=== PATIENT | female | born 1935 | race Caucasian/White ===

== ENCOUNTER 2022-03-25 09:08 | Emergency (ER) | payer MEDICARE, SELFPAY ==
[2022-03-25 09:20] VITALS: BP 135/54; PULSE 67; RESP 16; TEMP 37.2; O2SAT 97
--- NOTE | 2022-03-25 09:20 | ED.UPPEXIN ---
HPI - Extremity Injury (Upper) General Chief Complaint: Extremity Injury, Upper Stated Complaint: R SHOULDER PAIN Time Seen by Provider: 03/25/22 09:22 Source: patient and RN notes reviewed Mode of arrival: ambulatory Limitations: no limitations History of Present Illness HPI narrative: 86-year-old female presents concern for right shoulder pain. Reports 3-1/2 weeks ago she swung her golf club and felt a sudden pain in her right shoulder with a popping sound. she reports since then she has had continuing pain that has slightly increased. She reports pain with certain range of motion's. She denies weakness, decreased function or range of motion. She denies intervention. She denies bruises, swelling, redness, rash MD complaint: injury to: right and shoulder Related Data Home Medications Medication Instructions Recorded Confirmed No Home Medications 03/25/22 03/25/22 Allergies Allergy/AdvReac Type Severity Reaction Status Date / Time ciprofloxacin Allergy Unknown Verified 10/06/15 09:48 Sulfa (Sulfonamide Allergy Unknown Verified 10/06/15 09:48 Antibiotics) Review of Systems Review of Systems: CONSTITUTIONAL: Denies malaise, chills, sweats, or fever. SKIN: Denies rash or itching, open skin, laceration, abrasion, redness, warmth, swelling. MUSCULOSKELETAL: Reports right shoulder pain NEUROLOGIC: Denies numbness, weakness All systems reviewed & are unremarkable except as noted in HPI and below PMFSH Social History Social History Smoking status: Never smoker Alcohol intake: never Comments At time of signature, agree with nursing past medical, surgical, social and family history. There is no relevant family history pertinent to the presenting complaint Exam Narrative: GENERAL: Well-appearing, well-nourished, and in no acute distress. HEAD: Normocephalic, atraumatic. EYES: PERRLA, conjunctivae clear NECK: Supple. CHEST: Speaks in full sentences. No respiratory distress. HEART: Regular rate and rhythm. Normal and equal peripheral pulses. EXTREMITIES: Right shoulder arm, hand have normal strength and sensation, normal range of motion. No edema or ecchymosis. 5/5 strength with shoulder abduction and abduction. Normal sensation with sensitivity to light touch and pain. No point tenderness. No open wounds, no skin tenting, no devitalized tissue or atrophy, no trophic changes, no obvious deformity, alignment normal, nearby joints and structures intact. Distal pulses palpable and equal bilaterally, skin warm, dry, pink. Capillary refill less than 3 seconds. SKIN: Warm, dry, no rash. NEURO: Alert and oriented x3. PSYCH: Normal mood and affect Course Course Emergency Course: Patient is aware of diagnosis, understands and agrees to treatment plan. Anticipatory guidance given. Patient agrees to follow-up as directed and is aware of reasons to seek care at the emergency department. Portions of this record may have been created with voice recognition software Level of Care: Express Care Visit Vital Signs Vital signs: Reviewed. MDM - Extremity Injury (Upper) MDM Narrative Medical decision making narrative: Patients injury and pain is consistent with musculoskeletal etiology. No signs of neurological or vascular compromise on exam. Compartments and tissues are soft without signs of compartment syndrome. Pain is felt appropriate for further evaluation on an outpatient basis. Critical Care Time Critical Care Time Critical Care Time: No Discharge Plan Discharge Clinical Impression: Injury of shoulder, right Patient Disposition: Home, Self-Care Condition: Stable Instructions: Rotator Cuff Injury Exercises (DC) Additional Instructions: Avoid activities that cause pain until the pain subsides. Ice to the area 20-30 minutes 4-6 times a day Wear sling as needed for comfort Tylenol for pain Ibuprofen regularly for the next 2-3 days for the inflammation Follow up with your primary care pro
== END 2022-03-25 09:39 | disposition home or self-care (01) ==
PROVIDERS: Emergency Provider Nurse Practitioner
DX: S49.91XA Unspecified injury of right shoulder and upper arm, initial encounter (principal); X50.9XXA Other and unspecified overexertion or strenuous movements or postures, initial encounter
CPT/HCPCS: 99213; A4565; G0463

== ENCOUNTER → 2022-09-06 15:33 | Outpatient (CLI) | payer MEDICARE, SELFPAY ==
--- NOTE | ~2022-09-06 | XR_ITS ---
EXAM: XR shoulder RT min 2V DATE: 09/06/2022 15:56 HISTORY: FALL 2-3 WEEKS AGO PAIN LIMITED ROM . COMPARISON: None available. FINDINGS: Normal mineralization. No fracture or dislocation. No lytic or blastic lesion. Distal acro mial osteophytosis versus postsurgical change. Moderate degenerative change at the glenohumeral joint . Degenerative subcortical cysts in the humeral head. No erosion or periosteal change. Soft tissues w ithin normal limits. IMPRESSION: No acute osseous finding in the right shoulder. Reviewed, dictated and finalized at location K. ET ROLLER ENGINEER
== END ==
PROVIDERS: PCP Family Medicine; Visit Provider Family Medicine
DX: M25.511 Pain in right shoulder (principal)
CPT/HCPCS: 73030

== ENCOUNTER 2023-04-25 08:09 | Outpatient (CLI) | payer MEDICARE, SELFPAY ==
[2023-04-25 14:23] LABS: Basophils Percent Auto 0.7 % (0.2-1.2); Eosinophils Absolute Auto 0.2 K/mm3 (0-0.3); Eosinophils Percent Auto 2.9 % (0-4.4); Hematocrit 40.7 % (37.0-47.0); Hemoglobin 13.7 g/dL (12.0-15.0); Immature Granulocyte Absolute 0.01 K/mm3 (0.00-0.031); Immature Granulocyte Percent A 0.2 % (0-0.5); Lymphocytes Absolute Auto 2.13 K/mm3 (0.9-3.2); Lymphocytes Percent Auto 36.2 % (18.3-44.2); Mean Corpuscular HGB Conc 33.7 g/dl (32-36); Mean Corpuscular Hemoglobin 32.5 pg (26-34); Mean Corpuscular Volume 96.7 fl (80-100); Mean Platelet Volume 9.3 fl (7.4-10.4); Monocytes Absolute Auto 0.5 K/mm3 (0.1-0.6); Monocytes Percent Auto 9.2 % (2.6-8.5); Neutrophils Percent Auto 50.8 % (45.5-73.1); Platelet Count Result 223 k/mm3 (150-375); Red Blood Count 4.21 M/mm3 (4.2-5.4); Red Cell Distribution Width 12.1 % (11.5-14.5); White Blood Count 5.9 K/mm3 (4.5-10.0)
[2023-04-25 14:35] LABS: Alanine Aminotransferase 18 U/L (6-35); Albumin Level 4.2 g/dL (3.5-5.1); Alkaline Phosphatase 71 U/L (38-126); Anion Gap 12 mmol/L (8-16); Aspartate Amino Transferase 50 U/L (14-36); Bilirubin,Total 1.4 mg/dL (0.2-1.3); Blood Urea Nitrogen 18 mg/dL (7-17); Calcium 9.2 mg/dL (8.4-10.2); Carbon Dioxide 30 mmol/L (22-30); Chloride 97 mmol/L (98-107); Cholesterol 215 mg/dL (0-200); Estimated Glomerular Filt Rate > 60; Glucose 86 mg/dL (65-110); HDL Direct 54 mg/dL; Potassium 4.2 mmol/L (3.4-5.0); Sodium 139 mmol/L (137-145); Triglycerides 162 mg/dL (<150)
[2023-04-25 14:47] LABS: LDL Cholesterol Direct 117 mg/dL
[2023-04-25 15:49] LABS: Vitamin D 25 Hydroxy 49.6 ng/mL
== END 2023-04-25 08:10 | disposition home or self-care (01) ==
LOC: ANHGOSHLAB 08:11
PROVIDERS: PCP Family Medicine; Visit Provider Family Medicine
DX: Z00.00 Encounter for general adult medical examination without abnormal findings (principal); E78.5 Hyperlipidemia, unspecified; E55.9 Vitamin D deficiency, unspecified; Z79.899 Other long term (current) drug therapy; R23.2 Flushing; R43.0 Anosmia; E53.8 Deficiency of other specified B group vitamins
CPT/HCPCS: 36415; 80053; 80061; 82306; 82607; 84443; 85025

== ENCOUNTER 2023-09-05 15:22 | Outpatient (CLI) | payer MEDICARE, OTHER, SELFPAY ==
--- NOTE | ~2023-09-05 | MM_ITS ---
EXAMINATION: MM screening garrick BI w jaime HISTORY: Screening mammogram TECHNIQUE: Craniocaudal and mediolateral oblique 3-D tomosynthesis images were obtained and synthetic 2-D images were generated. CAD analysis was submitted and interpreted. COMPARISON: No prior mammogram is available for comparison at this institution. BREAST PARENCHYMAL COMPOSITION: There are scattered areas of fibroglandular density. FINDINGS: RIGHT BREAST: There is a low-density mass in the anterior/middle third of the lower-outer breast 4 cm from the nipple. LEFT BREAST: No suspicious mass, calcification, or architectural distortion are identified to suggest malignancy. IMPRESSION: 1. Right breast mass. 2. Additional mammographic views and possible breast ultrasound are recommended. BI-RADS Category 0: Incomplete: Needs additional imaging evaluation. Reviewed, dictated and finalized at location A. EM TRAINER IMPRESSION: 1. Right breast mass. 2. Additional mammographic views and possible breast ultrasound are recommended . BI-RADS Category 0: Incomplete: Needs additional imaging evaluation.
--- NOTE | ~2023-09-05 | DEXA_ITS ---
Bone Density Report Name: MORRIS PELAYO Age: 88 Sex: Female Ethnicity: White Date of : 1935 Indication: postmenopausal; screening for osteoporosis; height loss; Referring Provider: ROXANA STEINBERG Study: Bone densitometry was performed. Exam Date: September 05, 2023 Accession number: [id number] Bone Density: Region BMD T-score Z-score Classification AP Spine(L1-L4) 0.979 -0.6 2.3 Normal Femoral Neck (Left) 0.620 -2.1 0.5 Osteopenia Total Hip (Left) 0.719 -1.8 0.5 Osteopenia Femoral Neck (Right) 0.590 -2.3 0.2 Osteopenia Total Hip (Right) 0.685 -2.1 0.2 Osteopenia Total Hip Mean 0.702 -2.0 0.4 Osteopenia World Health Organization criteria for BMD impression classify patients as: Normal (T-score at or above -1.0), Osteopenia (T-score between -1.0 and -2.5), or Osteoporosis (T-score at or below -2.5). 10-year Fracture Risk(1): Major Osteoporotic Fracture 17% Hip Fracture 5.7% Reported Risk Factors: [place] (), Neck BMD=0.590, BMI=25.4 (1) FRAX(R) Version 3.08. Fracture probability calculated for an untreated patient. Fracture probability may be lower if the patient has received treatment. Clinical Information Provided by Patient: Has used the following medications: Calcium Patient maximum height was 62 Menopause Age: 52 No regular weight bearing exercise Drinks caffeinated beverages Onset of menses at age 14 Number of children 3 Impression: The patient has low bone mass, based on the Right Femoral Neck T-score. The patient has an estimated ten-year risk of hip fracture of 5.7% and an estimated ten-year risk of major fracture of 17%, based on the WHO FRAX algorithm. Discussion: BONE DENSITY IS LOW AT ONE OR MORE SKELETAL SITES. THE PATIENT'S BMD AND CLINICAL RISK FACTORS CONTRIBUTE TO THIS PATIENT'S INCREASED RISK OF FRACTURE. This patient's lowest T-score is low at one or more skeletal sites. It meets the World Health Organization's (WHO) criteria for ?low bone mass? (T-score between -1.0 and -2.5). The patient's 10-year risk of hip fracture as calculated by FRAX exceeds the threshold where pharmacological therapy is recommended by the National Osteoporosis Foundation (NOF). However, all treatment decisions require clinical judgment and consideration of individual patient factors, including patient preferences, comorbidities, previous drug use, risk factors not captured in the FRAX model (e.g., frailty, falls, vitamin D deficiency, increased bone turnover, interval significant decline in bone density) and possible under or overestimation of fracture risk by FRAX. The patient should follow a healthful lifestyle (good nutrition with adequate calcium and vitamin D, and appropriate weight-bearing exercise). Follow-Up: Consider a repeat BMD and Vertebral Frac
== END 2023-09-05 15:23 | disposition home or self-care (01) ==
PROVIDERS: PCP Family Medicine; Visit Provider Family Medicine
DX: Z12.31 Encounter for screening mammogram for malignant neoplasm of breast (principal); Z78.0 Asymptomatic menopausal state; R92.8 Other abnormal and inconclusive findings on diagnostic imaging of breast; M85.852 Other specified disorders of bone density and structure, left thigh; M85.851 Other specified disorders of bone density and structure, right thigh
CPT/HCPCS: 77063; 77067; 77080

== ENCOUNTER 2023-10-02 09:31 | Outpatient (CLI) | payer MEDICARE, OTHER, SELFPAY ==
--- NOTE | ~2023-10-02 | MMUS_ITS ---
EXAMINATION: MM diagnostic garrick RT w jaime, US breast RT limited HISTORY: Follow-up right breast asymmetry TECHNIQUE: Additional 3-D tomosynthesis images of the right breast were performed and synthetic 2-D i mages were generated. CAD analysis was submitted and interpreted. High resolution Limited right breas t ultrasound was performed. COMPARISON: 09/05/2023 BREAST PARENCHYMAL COMPOSITION: Breast composed of scattered areas of fibroglandular density FINDINGS: MAMMOGRAPHIC FINDINGS: There is a persistent mass in the lower outer quadrant of the right breast anteriorly. There are no s uspicious calcifications or architectural distortion. ULTRASOUND: Limited left breast ultrasound: At 8:00, 2 cm from the nipple, there is a complicated cyst measuring 6 mm, corresponding to the area of mammographic concern. No suspicious masses to suggest malignancy. IMPRESSION: 1. No evidence for malignancy in the right breast. Benign finding. 2. Routine yearly screening mammogram and regular clinical breast examination are recommended. BI-RADS Category 2: Benign finding(s). Reviewed, dictated and finalized at location A. NER BARREL AND RECEIVER IMPRESSION: 1. No evidence for malignancy in the right breast. Benign finding. 2. Routine yearly screening mammogram and regular clinical breast examination a re recommended. BI-RADS Category 2: Benign finding(s).
== END 2023-10-02 09:32 | disposition home or self-care (01) ==
LOC: ANHIMG 09:34
PROVIDERS: PCP Family Medicine; Visit Provider Family Medicine
DX: N63.10 Unspecified lump in the right breast, unspecified quadrant (principal); R92.8 Other abnormal and inconclusive findings on diagnostic imaging of breast
CPT/HCPCS: 76642; 77061; 77065; G0279

== ENCOUNTER 2024-04-29 09:37 | Outpatient (CLI) | payer MEDICARE, OTHER, SELFPAY ==
[2024-04-29 14:07] LABS: Basophils Absolute Auto 0.1 K/mm3 (0.0-0.1); Eosinophils Absolute Auto 0.2 K/mm3 (0-0.3); Eosinophils Percent Auto 2.2 % (0-4.4); Hematocrit 41.3 % (37.0-47.0); Hemoglobin 13.6 g/dL (12.0-15.0); Immature Granulocyte Absolute 0.01 K/mm3 (0.00-0.031); Immature Granulocyte Percent A 0.1 % (0-0.5); Lymphocytes Absolute Auto 2.15 K/mm3 (0.9-3.2); Lymphocytes Percent Auto 31.5 % (18.3-44.2); Mean Corpuscular HGB Conc 32.9 g/dl (32-36); Mean Corpuscular Hemoglobin 32.5 pg (26-34); Mean Corpuscular Volume 98.8 fl (80-100); Mean Platelet Volume 9.1 fl (7.4-10.4); Monocytes Absolute Auto 0.7 K/mm3 (0.1-0.6); Monocytes Percent Auto 9.7 % (2.6-8.5); Neutrophils Absolute Auto 3.8 K/mm3 (1.3-6.7); Neutrophils Percent Auto 55.5 % (45.5-73.1); Platelet Count Result 228 k/mm3 (150-375); Red Blood Count 4.18 M/mm3 (4.2-5.4); Red Cell Distribution Width 12.2 % (11.5-14.5); White Blood Count 6.8 K/mm3 (4.5-10.0)
[2024-04-29 14:45] LABS: Alanine Aminotransferase 17 U/L (6-35); Albumin Level 4.2 g/dL (3.5-5.1); Alkaline Phosphatase 72 U/L (38-126); Anion Gap 10 mmol/L (4-12); Aspartate Amino Transferase 59 U/L (14-36); Bilirubin,Total 1.5 mg/dL (0.2-1.3); Blood Urea Nitrogen 15 mg/dL (7-17); Calcium 9.5 mg/dL (8.4-10.2); Carbon Dioxide 28 mmol/L (22-30); Chloride 101 mmol/L (98-107); Cholesterol 219 mg/dL (0-200); Estimated Glomerular Filt Rate > 60; Glucose 86 mg/dL (65-110); HDL Direct 61 mg/dL; Potassium 4.6 mmol/L (3.4-5.0); Sodium 139 mmol/L (137-145); Triglycerides 131 mg/dL (<150)
[2024-04-29 14:56] LABS: LDL Cholesterol Direct 113 mg/dL
== END 2024-04-29 09:38 | disposition home or self-care (01) ==
PROVIDERS: PCP Family Medicine; Visit Provider Nurse Practitioner Family
DX: R20.0 Anesthesia of skin (principal); Z13.220 Encounter for screening for lipoid disorders; E78.5 Hyperlipidemia, unspecified
CPT/HCPCS: 36415; 80053; 80061; 84443; 85025

== ENCOUNTER 2024-10-03 10:03 | Outpatient (CLI) | payer MEDICARE, OTHER, SELFPAY ==
--- NOTE | ~2024-10-03 | MM_ITS ---
EXAMINATION: MM screening garrick BI w jaime HISTORY: Screening TECHNIQUE: Craniocaudal and mediolateral oblique 3-D tomosynthesis images were obtained and synthetic 2-D images were generated. CAD analysis was submitted and interpreted. COMPARISON: 09/05/2023 BREAST PARENCHYMAL COMPOSITION: Not dense: There are scattered areas of fibroglandular density. FINDINGS: There is no evidence of suspicious mass, calcification, or architectural distortion to sugg est malignancy in either breast. There has been no suspicious interval change. IMPRESSION: 1. No mammographic evidence of malignancy. 2. Recommend routine screening mammography in one year. BI-RADS Category 1: Negative Reviewed, dictated and finalized at location A. ERCIAL DIRECTOR
--- OUTSIDE RECORDS SUMMARY | 2024-10-03 10:48 | XMS_ITS | Referral Summary ---
Author Organization [facility] Address [address] [place] [address] Care Team Providers Care Silica Mixer Operator Name Role Phone Unavailable Primary Care Provider Unavailabl e Source Comments [facility],non-owned Affiliates and Associated Physician Practices is amultiple site organization consisting of ambulatory clinics and hospital sitesin [place], [place], [place] and [place]. This disclosure is being madepursuant to the Care Everywhere program and may not contain all information available regarding this patient. Last updated 18.[facility] [employer] Social History Tobacco Use Types Packs/Day Years Used Date Smoking Tobacco: Never Assessed Sex and Gender Information Value Date Recorded Sex Assigned at Not on file Gender Identity Not on file Sexual Orientation Not on file Plan of Treatment Not on file
--- OUTSIDE RECORDS SUMMARY | 2024-10-03 10:48 | XMS_ITS | Clinical Summary ---
Author Organization [facility] [address] Address [address] [place] [id number] Care Team Providers Care Curtains And Draperies Salesperson Name Role Phone Alcides Ovalles MD Primary Care Provider [phone] Allergies Active Allergy Reactions Criticality Noted Date Comments Ciprofloxacin Stomach upset,Vision changes Medium 08/13/2019 Sulfa (Sulfonamide Antibiotics) Other (See comments) Low 08/13/2019 Bladder infection Medications nitrofurantoin monohydrate (MACROBID) 100 mg capsule TAKE 1 CAPSULE BY MOUTH TWICE A DAY FOR 7 DAYS 0 07/08/2019 Active aspirin 81 mg enteric coated tablet Take 81 mg by mouth daily Active Active Problems No known active problems Surgical History Surgery Date Site/Laterality Comments TOTAL ABDOMINAL HYSTERECTOMY W/ BILATERAL SALPINGOOPHORECTOMY 09/04/1987 - 09/03/1988 INGUINAL HERNIA REPAIR Right BREAST BIOPSY Left CATARACT EXTRACTION Medical History Medical History Date Comments Glaucoma TIA (transient ischemic attack) Inguinal hernia Kidney stone Basal cell carcinoma Migraine Family History Medical History Relation Name Comments Hypertension Mother Skin cancer Sister Relation Name Status Comments Mother Sister Social History Tobacco Use Types Packs/Day Years Used Date Smoking Tobacco: Former Cigarettes Q uit: 1985 Smokeless Tobacco: Never Alcohol Use Standard Drinks/Week Comments Yes 0 (1 standard drink = 0.6 oz pur e alcohol) Personal Safety Answer Date Recorded Getting School Help Needed Not on file 11/17 Comments No Sex and Gender Information Value Date Recorded Sex Assigned at Not on file Legal Sex Female 8:54 PM METAL CONTROL COORDINATOR Gender Identity Not on file Sexual Orientation Not on file Obstetrics History Last Filed Vital Signs Vital Sign Reading Time Taken Comments Blood Pressure 120/78 08/13/2019 10:43 AM METAL CONTROL COORDINATOR Pulse - - Temperature - - Respiratory Rate - - Oxygen Saturation - - Inhaled Oxygen Concentration - - Weight 63.5 kg (140 lb) 08/13/2019 10:43 AM METAL CONTROL COORDINATOR Height 154.9 cm (5' 1 ) 08/13/2019 10:43 AM METAL CONTROL COORDINATOR Body Mass Index 26.45 08/13/2019 10:43 AM METAL CONTROL COORDINATOR Plan of Treatment Not on file Insurance MEDICARE [employer] GENERIC MEDICARE COMMERCIAL GENERIC Care Teams Curtains And Draperies Salesperson Relationship Specialty Start Date End Date Alcides Ovalles MD [address] [facility] [address] [place] [address] PCP - General 07/04/18
--- OUTSIDE RECORDS SUMMARY | 2024-10-03 10:48 | XMS_ITS | Patient Health Summary ---
Author Organization [facility] Address [address] [facility] [address] [place] [address] Care Team Providers Care Flush Tester Name Role Phone Unavailable Primary Care Provider Unavailabl e Note from [facility],non-owned Affiliates and Associated Physician Practices is amultiple site organization consisting of ambulatory clinics and hospital sitesin [place], [place], [place] and [place]. This disclosure is being madepursuant to the Care Everywhere program and may not contain all information available regarding this patient. Last updated 18.[facility] [employer] Social History Tobacco Use Types Packs/Day Years Used Date Smoking Tobacco: Never Assessed Sex and Gender Information Value Date Recorded Sex Assigned at Not on file Gender Identity Not on file Sexual Orientation Not on file Procedures * CYTOLOGY SMEAR PAP(Performed 10/07/1997) Results * CYTOLOGY SMEAR PAP (10/07/1997 12:26 PM SUPERVISOR CAR INSTALLATIONS) Result CASE NUMBER [id number] Comment: ORDERING PHYSICIAN ??MORENO EAGLE SPECIMEN TYPE ?PAP Smear Date ? 10/07/1997 Procedure ?Vaginal, 1 smear received Specimen Adequacy ?Satisfactory for Evaluation Categorization ? Within Normal Limits Snomed. ?10/09/1997 0944 <1> Grounds And Nursery Specialist ? Zack Nolasco(ASCP) PAP Footnote ? The PAP smear is only a screening procedure to aid in the detection of cervical cancer and its precursors. ??It is not a diagnostic procedure and should not be used as the sole means to detect cervical cancer. ??Both false negative and false positive results have been experienced. MISCELLANEOUS SAMPLES / Unknown 10/07/1997 12:26 PM SUPERVISOR CAR INSTALLATIONS 10/08/1997 12:26 PM SUPERVISOR CAR INSTALLATIONS Historical Provider LAB - PATHOLOGY/C YTOLOGY ORDERABLES
--- OUTSIDE RECORDS SUMMARY | 2024-10-03 10:48 | XMS_ITS | Clinical Summary ---
Author Organization [facility] Address [address] [place] [address]. [place], [place] [address] [place] [id number] Care Team Providers Care Pulp Drier Firer Name Role Phone Unavailable Primary Care Provider Unavailabl e Social History Tobacco Use Types Packs/Day Years Used Date Smoking Tobacco: Never Assessed Comments Unknown Sex and Gender Information Value Date Recorded Sex Assigned at Not on file Legal Sex Female 8:23 PM CDT Gender Identity Not on file Sexual Orientation Not on file Plan of Treatment Health Maintenance Due Date Last Done Comments DTaP, Tdap and Td Vaccines ( 1 - Tdap) 1956 Zoster Vaccines (1 of 2) 1987 Pneumococcal Vaccine: 65+ Ye ars (1 of 1 - PCV) 2002 RSV Immunization or 60+ Years (1 - 1-dose 75+ series) 2012 COVID-19 Vaccine (2023-2 5 season) 2024 Influenza Adult (#1) 2024 Meningococcal B Vaccine Aged Out No l onger eligible based on patient's age to complete this topic Meningococcal Vaccine Aged Out No monse favian eligible based on patient's age to complete this topic RSV Immunizations Under 20 Months Aged Out No longer eligible based on patient's age to complete this topic
--- OUTSIDE RECORDS SUMMARY | 2024-10-03 10:48 | XMS_ITS | Referral Summary ---
Author Organization [facility] [id number] [place] Address [address] [place] [id number] Care Team Providers Care Cooperative Education Director Name Role Phone Alcides Ovalles MD Primary Care Provider Allergies Active Allergy Reactions Criticality Noted Date [...] Active Active Problems No known active problems Social History Tobacco Use Types Packs/Day Years Used Date Smoking Tobacco: Former Cigarettes Q uit: 1986 Smokeless Tobacco: Never Alcohol Use Standard Drinks/Week Comments Yes 0 (1 standard drink = 0.6 oz pur e alcohol) Personal Safety Answer Date Recorded Getting School Help Needed Not on file 11/17 Comments No Sex and Gender Information Value Date Recorded Sex Assigned at Not on file Legal Sex Female 8:54 PM SOFTWARE ENGINEER DEVELOPER Gender Identity Not on file Sexual Orientation Not on file Last Filed Vital Signs Vital Sign Reading Time Taken Comments Blood Pressure 120/78 08/13/2019 10:43 AM SOFTWARE ENGINEER DEVELOPER Pulse - - Temperature - - Respiratory Rate - - Oxygen Saturation - - Inhaled Oxygen Concentration - - Weight 63.5 kg (140 lb) 08/13/2019 10:43 AM SOFTWARE ENGINEER DEVELOPER Height 154.9 cm (5' 1 ) 08/13/2019 10:43 AM SOFTWARE ENGINEER DEVELOPER Body Mass Index 26.45 08/13/2019 10:43 AM SOFTWARE ENGINEER DEVELOPER Plan of Treatment Not on file Insurance MEDICARE COMMERCIAL GENERIC MEDICARE COMMERCIAL GENERIC Care Teams Cooperative Education Director Relationship Specialty Start Date End Date Alcides Ovalles MD [address] [facility] [address] [place] [address] PCP - General 07/04/18
--- OUTSIDE RECORDS SUMMARY | 2024-10-03 10:48 | XMS_ITS | Clinical Summary ---
Author Organization [facility] Address [address] [place] [address] Care Team Providers Care Sales Support Engineer Name Role Phone Unavailable Primary Care Provider Unavailabl e Source Comments [facility],non-owned Affiliates and Associated Physician Practices is amultiple site organization consisting of ambulatory clinics and hospital sitesin [place], [place], [place] and [place]. This disclosure is being madepursuant to the Care Everywhere program and may not contain all information available regarding this patient. Last updated 18.[facility] Social History Tobacco Use Types Packs/Day Years Used Date Smoking Tobacco: Never Assessed Sex and Gender Information Value Date Recorded Sex Assigned at Not on file Gender Identity Not on file Sexual Orientation Not on file Plan of Treatment Health Maintenance Due Date Last Done Comments BONE DENSITY TESTING 1935 DTAP/TDAP/TD VACCINES (1 - Tdap) 1956 PNEUMOCOCCAL VACCINE 50+ (1 of 1 - PCV) 1987 ZOSTER VACCINE (1 of 2) 1987 Respiratory Syncytial Virus (RSV) Vaccine Pt: or over 60 yrs (1 - 1-dose 75+ series) 2012 COVID-19 VACCINE (2023-2 5 season) 2024 INFLUENZA VACCINE (#1) 2024 DEPRESSION SCREENING 09/04/2024 HEPATITIS B VACCINE Aged Out No longe r eligible based on patient's age to complete this topic HIB VACCINE Aged Out No longer eligi ble based on patient's age to complete this topic HPV VACCINE Aged Out No longer eligi ble based on patient's age to complete this topic MENINGOCOCCAL (Group B) VACCINE Aged Out No longer eligible based on patient's age to complete this topic MENINGOCOCCAL VACCINE Aged Out No monse favian eligible based on patient's age to complete this topic
== END 2024-10-03 10:04 | disposition home or self-care (01) ==
PROVIDERS: PCP Family Medicine; Visit Provider Family Medicine
DX: Z12.31 Encounter for screening mammogram for malignant neoplasm of breast (principal)
CPT/HCPCS: 77063; 77067

== ENCOUNTER 2024-10-17 12:39 | Outpatient (CLI) | payer MEDICARE, SELFPAY ==
--- OUTSIDE RECORDS SUMMARY | 2024-10-17 12:43 | XMS_ITS | Clinical Summary ---
Author Organization [facility] Robert Applebaum MD Address [address] [place] [address] Care Team Providers Care Dry Box Operator Name Role Phone Unavailable Primary Care Provider Unavailabl e Source Comments [facility] Robert Applebaum MD,non-owned Affiliates and Associated Physician Practices is amultiple site organization consisting of ambulatory clinics and hospital sitesin [place], [place], [place] and [place]. This disclosure is being madepursuant to the Care Everywhere program and may not contain all information available regarding this patient. Last updated 18.[facility] Robert Applebaum MD Social History Tobacco Use Types Packs/Day Years [...]
--- OUTSIDE RECORDS SUMMARY | 2024-10-17 12:43 | XMS_ITS | Patient Health Summary ---
Author Organization [facility] Address [address] [place] [address] Care Team Providers Care Marine Operations Coordinator Name Role Phone Unavailable Primary Care Provider Unavailabl e Note from [facility],non-owned Affiliates and Associated Physician Practices is amultiple site organization consisting of ambulatory clinics and hospital sitesin [place], [place], [place] and [place]. This disclosure is being madepursuant to the Care Everywhere program and may not contain all information available regarding this patient. Last updated 18.[facility] Social History Tobacco Use Types Packs/Day Years Used Date Smoking Tobacco: Never Assessed Sex and Gender Information Value Date Recorded Sex Assigned at Not on file Gender Identity Not on file Sexual Orientation Not on file Procedures * CYTOLOGY SMEAR PAP(Performed 10/07/1997) Results * CYTOLOGY SMEAR PAP (10/07/1997 12:26 PM FORENSIC CHEMIST) Result CASE NUMBER [id number] Comment: ORDERING PHYSICIAN MORENO EAGLE SPECIMEN TYPE PAP Smear Date 10/07/1997 Procedure Vaginal, 1 smear received Specimen Adequacy Satisfactory for Evaluation Categorization Within Normal Limits Snomed. 10/09/1997 0944 <1> Pharmacy Resource Tech Zack Nolasco(ASCP) PAP Footnote The PAP smear is only a screening procedure to aid in the detection of cervical cancer and its precursors. It is not a diagnostic procedure and should not be used as the sole means to detect cervical cancer. Both false negative and false positive results have been experienced. MISCELLANEOUS SAMPLES / Unknown 10/07/1997 12:26 PM FORENSIC CHEMIST 10/08/1997 12:26 PM FORENSIC CHEMIST Historical Provider LAB - PATHOLOGY/C YTOLOGY ORDERABLES
--- OUTSIDE RECORDS SUMMARY | 2024-10-17 12:43 | XMS_ITS | Referral Summary ---
Author Organization [facility] Address [address] [facility] [place] [address] Care Team Providers Care Fish Hatchery Man Name Role Phone Unavailable Primary Care Provider Unavailabl e Source Comments [facility],non-owned Affiliates and Associated Physician Practices is amultiple site organization consisting of ambulatory clinics and hospital sitesin [place]. This disclosure is being madepursuant to the Care Everywhere program and may not contain all information available regarding this patient. Last updated 18.[facility] [employer] Social History Tobacco Use Types Packs/Day Years Used Date Smoking Tobacco: Never Assessed Sex and Gender Information Value Date Recorded Sex Assigned at Not on file Gender Identity Not on file Sexual Orientation Not on file Plan of Treatment Not on file
--- OUTSIDE RECORDS SUMMARY | 2024-10-17 12:43 | XMS_ITS | Clinical Summary ---
Author Organization [facility] Address [facility] [place] [address] Care Team Providers Care Viner Operator Name Role Phone Unavailable Primary Care [...]
--- OUTSIDE RECORDS SUMMARY | 2024-10-17 12:43 | XMS_ITS | Continuity of Care Document ---
Author Organization [facility] Address [address] [facility] [address] [place] [address] Phone Care Team Providers Care Pediatric Np Name Role Phone Micky Mai Unavailable Unavailable Procedures Procedure Date Office/outpatient Visit, Est Optic Nerve Head Eval IOP Red Less Than 15% W Plan Of Care Apr IOP Red Less That 15% W Plan Of Care Apr Eye Exam Established Pt Optic Nerve Head Eval IOP Red Less Than 15% W Plan Of Care Nov IOP Red Less That 15% W Plan Of Care Nov Optic Nerve Topography-Professional Optic Nerve Topography-Professional Optic Nerve Topography Optic Nerve Topography Eye Exam Established Pt Oct- Optic Nerve Head Eval Oct- Corneal Pachymetry Jun- Fundus Photography W/ Report Jun- No Script Visual Field Examination-Professional Oc Visual Field Examination-Technical Sep-2 Eye Exam & Treatment Optic Nerve Head Eval No Script Advance Directives Directive Yes / No Effective Date File Name No Information Encounters Encounter Description Practice Location Reason(s) For Visit Diagnoses Date Provider Providers Copied on Encounter Office/outpat ient Visit, Est [facility], [address], [place], [place], [id number], [place] tel:[phone] [facility] No Information 201 0 Sergei Weeks. [address] , [address], [place], [address], [place]. tel:[phone] [facility] Eye [facility], [address], [place], [place], [id number], [place] tel:[phone] [facility] No Information Nov-0 1-201 0 Sergei Weeks. [facility] , [address], [place], [place], [facility], [place]. tel:[phone] [facility] Eye [facility], [address], [place], [place], [id number], [place] tel:[phone] [facility] No Information 2 3[address] Sergei Weeks. [address] [place], [place] [address] , [address], [place], [place], [facility], [place]. tel:[phone] Referring Provider: Micky Chowdary, [facility] hospital[facility] [address], [place], [place], [facility]. tel:[phone] [facility] Eye [facility], [address], [place], [place], [id number], [place] tel:[phone] [facility] No Information 1 -201 0 Sergei Weeks. [address] [place], [place] [address], [address], [place], [place], [facility], [place]. tel:[phone] Referring Provider: Micky Chowdary, [facility] [address], [place], [facility]. tel:[phone] [facility] Eye [facility], [address], [place], [place], [id number], [place] tel:[phone] [facility] No Information 2 1-200 9 Sergei Weeks. [facility] , [address], [place], [facility], [place]. tel:[phone] Referring Provider: Micky Chowdary, Y[address], [place], [facility]. tel:[phone] [facility] Eye [facility], [address], [place], [place], [id number], tel:[phone] [facility] No Information [address] Sergei Weeks. [facility] [address], [address], [place], [place], [facility], . tel:[phone] Referring Provider: Micky Chowdary, Y[facility]rose [facility] [address], [place], [facility]. tel:[phone] [facility] Eye [facility], [address], [place], [place], [id number], tel:[phone] [facility] No Information [address] Sergei Weeks. [facility] [address], [address], [place], [facility], . tel:[phone] Referring Provider: Yvrose Yarbrough [facility] [address], [place], [facility]. tel:[phone] [facility], [address] [place], [place] [address], [place], [place], [id number], tel:[phone] [facility] No Information [address] 9 Sergei Weeks. [address] [place], [place] [address]ate [address], [address], [place], [facility], . tel:[phone] Family History Family Member Type Diagnosis Age At Onset No Information Payers Payer name Insurance type Covered democrat ID Authoriza tion(s) [place] [id number] Social History Type Description Quantity Date Captured Comments Sex Female Smoking Status No Information Chief Complaint And Reason For Visit No Information Reason For Referral Reason For Referral No Information History Of Present Illness Encounter Date Complaint History Of Prese nt Illness No Information Functional Status Date Functional Assessmen t No Information Instructions Date Instruction Additional Infor mation No Information Assessments Type Assessment Date No Information Patient Care Teams Name Effective Dates (start - stop) Status Members No Information
--- OUTSIDE RECORDS SUMMARY | 2024-10-17 12:43 | XMS_ITS | Clinical Summary ---
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 Gender Identity Not on file Sexual Orientation Not on file Obstetrics History Last Filed Vital Signs Vital Sign Reading Time Taken Comments Blood Pressure 120/78 08/13/2019 10:43 AM HOSPITAL TRAY SERVICE WORKER Pulse - - Temperature - - Respiratory Rate - - Oxygen Saturation - - Inhaled Oxygen Concentration - - Weight 63.5 kg (140 lb) 08/13/2019 10:43 AM HOSPITAL TRAY SERVICE WORKER Height 154.9 cm (5' 1 ) 08/13/2019 10:43 AM HOSPITAL TRAY SERVICE WORKER Body Mass Index 26.45 08/13/2019 10:43 AM HOSPITAL TRAY SERVICE WORKER Plan of Treatment Not on file Insurance MEDICARE [employer] GENERIC MEDICARE COMMERCIAL GENERIC Care Teams Candy Cutter Machine Relationship Specialty Start Date End Date Alcides Ovalles MD [address] [facility] [address] [place] [address] PCP - General 07/04/18
--- OUTSIDE RECORDS SUMMARY | 2024-10-17 12:43 | XMS_ITS | Referral Summary ---
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 Gender Identity Not on file Sexual Orientation Not on file Last Filed Vital Signs Vital Sign Reading Time Taken Comments Blood Pressure 120/78 08/13/2019 10:43 AM DRAWER IN HAND Pulse - - Temperature - - Respiratory Rate - - Oxygen Saturation - - Inhaled Oxygen Concentration - - Weight 63.5 kg (140 lb) 08/13/2019 10:43 AM DRAWER IN HAND Height 154.9 cm (5' 1 ) 08/13/2019 10:43 AM DRAWER IN HAND Body Mass Index 26.45 08/13/2019 10:43 AM DRAWER IN HAND Plan of Treatment Not on file Insurance MEDICARE COMMERCIAL GENERIC MEDICARE COMMERCIAL GENERIC Care Teams Painter Airbrush Relationship Specialty Start Date End Date Alcides Ovalles MD [address] [facility] [address] [place] [address] PCP - General 07/04/18
== END 2024-10-17 12:40 | disposition home or self-care (01) ==
LOC: ANHAUDASC 12:40
PROVIDERS: PCP Family Medicine; Visit Provider Nurse Practitioner Family
DX: H90.3 Sensorineural hearing loss, bilateral (principal)
CPT/HCPCS: 92557; 92567

== ENCOUNTER 2024-12-23 14:30 | Outpatient (RCR) | payer SELFPAY | END 2025-02-11 23:59 | disposition home or self-care (01) | LOC: ANHAUDASC 14:30 | PROVIDERS: PCP Family Medicine; Visit Provider Nurse Practitioner Family | DX: Z46.1 Encounter for fitting and adjustment of hearing aid (principal) | CPT/HCPCS: 99199; V5261 ==